=== PATIENT | female | born 1995 | race African-American/Black ===

== ENCOUNTER 2017-09-14 07:09 | Emergency (ER) | payer BC ==
[~2017-09-14] VITALS: Ht 180.3 cm; Wt 108.9 kg
[~2017-09-14 07:09] MED LIST: FLAGYL500 MG PO; PHENERGAN 25 MG25 M1 PO; ZOFRAN ODT4 MG PO
[2017-09-14] MEDS ORDERED: VALIUM5 MG PO (08:05)
[2017-09-14] MEDS ORDERED: MOBIC15 MG PO (08:05)
[2017-09-14 08:17] VITALS: BP 113/75
== END 2017-09-14 08:19 | disposition home or self-care (01) ==
LOC: ER 07:09
DX: S16.1XXA Strain of muscle, fascia and tendon at neck level, initial encounter (principal); S20.20XA Contusion of thorax, unspecified, initial encounter; V89.0XXA Person injured in unspecified motor-vehicle accident, nontraffic, initial encounter; Y93.89 Activity, other specified; Y92.89 Other specified places as the place of occurrence of the external cause; Y99.8 Other external cause status

== ENCOUNTER 2018-02-26 09:51 | Emergency (ER) | payer BC ==
[~2018-02-26] VITALS: Ht 180.3 cm; Wt 106.1 kg
[~2018-02-26 09:51] MED LIST changes: +MOBIC15 MG PO; +VALIUM5 MG PO
[2018-02-26 10:18] LABS: URINE BILIRUBIN NEGATIVE (Negative); URINE BLOOD NEGATIVE (Negative); URINE CLARITY CLOUDY; URINE COLOR YELLOW; URINE GLUCOSE-RANDOM* NEGATIVE (Negative); URINE KETONES NEGATIVE (Negative); URINE NITRITE-REFLEX NEGATIVE (Negative); URINE PROTEIN (DIPSTICK) NEGATIVE (Negative); URINE SPECIFIC GRAVITY 1.015 (1.005-1.035); URINE UROBILINOGEN 0.2 E.U./dl (0.2-1.0)
[2018-02-26 10:25] LABS: URINE LEUKOCYTES-REFLEX 1+ (Negative)
[2018-02-26 10:34] LABS: SQUAMOUS >10 Many /LPF (0-3)
[2018-02-26 10:35] LABS: AMORPHOUS URATES Moderate /LPF (None Seen); CASTS None Seen /LPF (None Seen); URINE RBC None Seen /HPF (0-2); URINE WBC-REFLEX 6-15 Few /HPF (0-5)
[2018-02-26] MEDS ORDERED: FLAGYL500 MG PO (10:44)
[2018-02-26] MEDS ORDERED: DICLEGIS DR 101 EACH PO (10:44)
[2018-02-26] MEDS ORDERED: KEFLEX500 M1 PO (10:44)
== END 2018-02-26 11:13 | disposition home or self-care (01) ==
LOC: ER 09:51
PROVIDERS: Physician Assistant
DX: O98.311 Other infections with a predominantly sexual mode of transmission complicating pregnancy, first trimester (principal); A59.9 Trichomoniasis, unspecified; N80.9 Endometriosis, unspecified; Z90.89 Acquired absence of other organs; Z3A.00 Weeks of gestation of pregnancy not specified